=== PATIENT | female | born 1935 | race Caucasian/White ===

== ENCOUNTER 2021-10-16 14:18 | Emergency (ER) | payer MEDICARE, MEDICAID ==
[~2021-10-16] VITALS: Ht 162.6 cm; Wt 95.0 kg
[~2021-10-16 14:18] MED LIST: ATEN50TA PO; ATOR20TA65 PO; GABA-290 PO; LEVO50TA8 PO; LOSA50TA41 PO; RIVA20TA PO
[2021-10-16 14:27] VITALS: BP 106/91
[2021-10-16 15:49] LABS: BASOPHILS % 0.5 % (0.0-2.0); EOSINOPHILS % 1.3 % (0.0-5.0); HEMATOCRIT. 39.5 % (36.0-48.0); LYMPHOCYTES % 23.9 % (20.0-50.0); MEAN CORPUSCULAR HEMOGLOBIN 31.8 pg (28.0-32.0); MEAN PLATELET VOLUME 10.1 fl (7.4-10.4); MONOCYTES % 7.9 % (2.0-8.0); NEUTROPHILS % 66.4 % (40.0-76.0); PLATELET 202 x1000/uL (130-400); RED BLOOD CELL COUNT 4.07 mill/uL (4.2-5.4); RED CELL DISTRIBUTION WIDTH 15.3 % (11.6-14.6)
[2021-10-16 15:55] LABS: CHLORIDE 108 mEq/L (98-107)
[2021-10-16] MEDS ORDERED: MECL-159 MT (20:08)
== END 2021-10-16 20:37 | disposition home or self-care (01) ==
LOC: ER 14:18
DX: R42 Dizziness and giddiness (principal); R51.9 Headache, unspecified; I11.0 Hypertensive heart disease with heart failure; I50.9 Heart failure, unspecified; E03.9 Hypothyroidism, unspecified
CPT/HCPCS: 36415; 70551; 71045; 80053; 83880; 84484; 85025; 93005; 99285

== ENCOUNTER 2022-01-18 15:03 | Emergency (ER) | payer MEDICARE, MEDICAID ==
[~2022-01-18] VITALS: Ht 162.6 cm; Wt 93.0 kg
[~2022-01-18 15:03] MED LIST changes: +MECL-159 MT
[2022-01-18 17:20] VITALS: BP 178/89
== END 2022-01-18 18:10 | disposition home or self-care (01) ==
LOC: ER 15:03
DX: I10 Essential (primary) hypertension (principal); E78.00 Pure hypercholesterolemia, unspecified; E03.9 Hypothyroidism, unspecified; Z86.718 Personal history of other venous thrombosis and embolism; Z90.49 Acquired absence of other specified parts of digestive tract; Z79.01 Long term (current) use of anticoagulants
CPT/HCPCS: 93005; 99283

== ENCOUNTER 2022-01-26 13:32 | Emergency (ER) | payer MEDICARE, MEDICAID ==
[~2022-01-26] VITALS: Ht 162.6 cm; Wt 110.0 kg
[2022-01-26 14:51] LABS: BASOPHILS % 0.6 % (0.0-2.0); EOSINOPHILS % 1.6 % (0.0-5.0); HEMATOCRIT. 41.5 % (36.0-48.0); LYMPHOCYTES % 30.1 % (20.0-50.0); MEAN CORPUSCULAR HEMOGLOBIN 32.3 pg (28.0-32.0); MEAN PLATELET VOLUME 10.2 fl (7.4-10.4); MONOCYTES % 9.6 % (2.0-8.0); NEUTROPHILS % 58.1 % (40.0-76.0); PLATELET 190 x1000/uL (130-400); RED BLOOD CELL COUNT 4.32 mill/uL (4.2-5.4)
[2022-01-26 14:58] LABS: CHLORIDE 104 mEq/L (98-107)
[2022-01-26] MEDS ORDERED: SODIUM CHLORIDE 0.9% 1,000 ML IV ONE (15:45)
[2022-01-26 15:50] LABS: CLARITY URINE CLEAR (CLEAR); COLOR URINE YELLOW (YELLOW); KETONES URINE NEGATIVE (NEGATIVE); LEUKOCYTE ESTERASE URINE 2+ (NEGATIVE); NITRITE URINE NEGATIVE (NEGATIVE); OCCULT BLOOD URINE 1+ (NEGATIVE); PROTEIN URINE NEGATIVE (NEGATIVE); SPECIFIC GRAVITY URINE 1.007 (1.005-1.030); UROBILINOGEN URINE 0.2 E.U./dL (0.2-1.0)
[2022-01-26] MEDS ORDERED: ASPIRIN 325MG EC TABLET PO ONE (16:30)
[2022-01-26] MEDS ORDERED: CEFTRIAXONE 1 G PREMIX 50 ML IV ONE (16:30)
[2022-01-26 17:05] VITALS: BP 138/72
[2022-01-26] MEDS ORDERED: CEPH500C2 MT (17:14)
[2022-01-26] MEDS ORDERED: MECL-159 MT (17:15)
== END 2022-01-26 17:31 | disposition home or self-care (01) ==
LOC: ER 13:32 → CANBEDREQ 01-27 08:47
DX: R42 Dizziness and giddiness (principal); N30.90 Cystitis, unspecified without hematuria; I10 Essential (primary) hypertension
CPT/HCPCS: 36415; 70450; 80053; 81003; 85025; 93005; 96360; 96361; 99285; J7030

== ENCOUNTER → 2024-07-07 | Outpatient (CLI) | payer MEDICARE, MEDICAID ==
[~2024-07-07] MED LIST changes: +AMLO5TAB88 PO; +CEPH500C2 MT; +FURO-152 MT; +HYDR12.54 PO; -MECL-159 MT; +MECL-299 MT
== END | disposition home or self-care (01) ==
LOC: MRI 10:43
PROVIDERS: ATTEND Neurological Surgery
DX: M47.813 Spondylosis without myelopathy or radiculopathy, cervicothoracic region (principal); M48.02 Spinal stenosis, cervical region; M43.13 Spondylolisthesis, cervicothoracic region; M50.33 Other cervical disc degeneration, cervicothoracic region; M25.78 Osteophyte, vertebrae; R29.890 Loss of height; G95.20 Unspecified cord compression
CPT/HCPCS: 72141